=== PATIENT | female | born 1980 | race Caucasian/White ===

== ENCOUNTER 2020-12-12 16:09 | Outpatient (CLI) | payer BC | END 2020-12-12 16:10 | disposition home or self-care (01) | LOC: BICRAD 16:09 | PROVIDERS: ATTEND Physician Assistant | DX: M25.561 Pain in right knee (principal) ==

== ENCOUNTER 2021-02-11 08:42 | Outpatient (CLI) | payer BC | END 2021-02-11 08:43 | disposition home or self-care (01) | LOC: SCSMRI 08:42 | PROVIDERS: ATTEND Physician Assistant | DX: M25.561 Pain in right knee (principal); M94.261 Chondromalacia, right knee; M67.863 Other specified disorders of tendon, right knee; M84.451A Pathological fracture, right femur, initial encounter for fracture; M85.651 Other cyst of bone, right thigh ==

== ENCOUNTER 2021-09-05 14:54 | Emergency (ER) | payer BC | END 2021-09-05 18:05 | disposition home or self-care (01) | LOC: ERS 14:54 | DX: M17.11 Unilateral primary osteoarthritis, right knee (principal); G43.909 Migraine, unspecified, not intractable, without status migrainosus ==

== ENCOUNTER 2021-11-04 10:47 | Outpatient (CLI) | payer BC | END 2021-11-04 10:48 | disposition home or self-care (01) | LOC: BICRAD 10:47 | PROVIDERS: ATTEND Family Medicine | DX: M54.50 Low back pain, unspecified (principal); M47.816 Spondylosis without myelopathy or radiculopathy, lumbar region | CPT/HCPCS: 72100 ==

== ENCOUNTER 2022-06-09 11:25 | Outpatient (CLI) | payer BC | END 2022-06-09 11:26 | disposition home or self-care (01) | LOC: RAD 11:25 | PROVIDERS: ATTEND Family Medicine | DX: R07.81 Pleurodynia (principal) | CPT/HCPCS: 71046 ==

== ENCOUNTER 2022-12-08 09:50 | Outpatient (CLI) | payer BC | END 2022-12-08 09:51 | disposition home or self-care (01) | LOC: BICMAMMO 09:50 | PROVIDERS: ATTEND Family Medicine | DX: Z12.31 Encounter for screening mammogram for malignant neoplasm of breast (principal) | CPT/HCPCS: 77063; 77067 ==

== ENCOUNTER 2023-02-26 10:42 | Outpatient (CLI) | payer BC | END 2023-02-26 10:43 | disposition home or self-care (01) | LOC: MRI 10:42 | PROVIDERS: ATTEND Orthopaedic Surgery | DX: M23.91 Unspecified internal derangement of right knee (principal); M22.91 Unspecified disorder of patella, right knee; R60.0 Localized edema; S83.206A Unspecified tear of unspecified meniscus, current injury, right knee, initial encounter ==

== ENCOUNTER 2025-04-07 23:54 | Emergency (ER) | payer BC | END 2025-04-08 00:42 | disposition home or self-care (01) | LOC: ERS 23:54 | DX: T39.311A Poisoning by propionic acid derivatives, accidental (unintentional), initial encounter (principal) | CPT/HCPCS: 93005; 99284 ==

== ENCOUNTER 2025-07-12 09:41 | Outpatient (CLI) | payer BC ==
[2025-07-12] MEDS ORDERED: Iopamidol 370 76% 100 ML VIAL ONE (14:32)
== END 2025-07-12 09:42 | disposition home or self-care (01) ==
LOC: CT 09:41
PROVIDERS: ATTEND Family Medicine
DX: R10.A1 Flank pain, right side (principal); K76.89 Other specified diseases of liver; N83.8 Other noninflammatory disorders of ovary, fallopian tube and broad ligament
CPT/HCPCS: 36415; 74178; Q9967

== ENCOUNTER 2025-08-17 12:16 | Outpatient (CLI) | payer BC | END 2025-08-17 12:17 | disposition home or self-care (01) | LOC: ULT 12:16 | PROVIDERS: ATTEND Family Medicine | DX: N83.201 Unspecified ovarian cyst, right side (principal) | CPT/HCPCS: 76856 ==